=== PATIENT | male | born 1985 ===

== ENCOUNTER 2025-08-10 15:51 | Emergency (ER) | payer OTHER ==
[~2025-08-10] VITALS: Ht 170.2 cm; Wt 77.3 kg
[2025-08-10 15:56] VITALS: TEMP 97.8
[2025-08-10] MEDS: IBUPROFEN 600 MG TABLET PO ONE (16:44)
[2025-08-10] MEDS ORDERED: IBUP-1492 PO (17:28)
[2025-08-10 18:00] VITALS: BP 131/78; PULSE 71; RESP 18; O2SAT 97
== END 2025-08-10 18:22 | disposition home or self-care (01) ==
LOC: EDSEX 15:58 → EMS 15:58
DX: S63.502A Unspecified sprain of left wrist, initial encounter (principal); X50.0XXA Overexertion from strenuous movement or load, initial encounter; Y93.89 Activity, other specified; Y92.89 Other specified places as the place of occurrence of the external cause; Y99.8 Other external cause status
CPT/HCPCS: 99283